=== PATIENT | female | born 1980 | race African-American/Black ===

== ENCOUNTER 2021-11-25 05:36 | Day surgery (SDC) | payer BC ==
[2021-11-23 18:01] VITALS: BMI 25.6
[2021-11-25] MEDS ORDERED: DEXAMETHASONE SOD PHOSPHATE 4 MG/1 ML VIAL ONE (09:32)
[2021-11-25] MEDS ORDERED: BUPIVACAINE HCL/PF 0.5% (5MG/ML) 10 ML VIAL ONE ×3 (09:32→10:33)
[2021-11-25] MEDS ORDERED: GENTAMICIN SO4 80 MG/2 ML VIAL ONE (09:32)
[2021-11-25] MEDS ORDERED: LIDOCAINE HCL 1%, 10 MG/ML (20ML VIAL) ONE ×2 (09:32→10:32)
[2021-11-25] MEDS ORDERED: LIDOCAINE HCL 1%, 10 MG/ML (20ML VIAL) NR ONE ×3 (09:47→10:42)
[2021-11-25] MEDS ORDERED: BUPIVACAINE HCL/PF 0.5% (5MG/ML) 10 ML VIAL IJ ONE ×2 (09:47→10:42)
[2021-11-25] MEDS ORDERED: GENTAMICIN SO4 80 MG/2 ML VIAL IVPB ONE ×2 (09:56)
[2021-11-25] MEDS ORDERED: DEXAMETHASONE SOD PHOSPHATE 4 MG/1 ML VIAL IVPUSH ONE (09:57)
[2021-11-25] MEDS ORDERED: PROPOFOL 20 ML ONE ×3 (10:29)
[2021-11-25] MEDS ORDERED: KETOROLAC TROMETHAMINE 30 MG/1 ML VIAL ONE (10:29)
[2021-11-25] MEDS ORDERED: MIDAZOLAM HCL 2 MG/2 ML SINGLE DOSE VIAL ONE (10:29)
[2021-11-25] MEDS ORDERED: ceFAZolin SODIUM 1 GM VIAL ONE (10:29)
[2021-11-25] MEDS ORDERED: ONDANSETRON 4 MG/2 ML VIAL ONE (10:29)
[2021-11-25 13:02] VITALS: BP 116/73; PULSE 80; TEMP 97.3
== END 2021-11-25 14:08 | disposition home or self-care (01) ==
LOC: JASU-SURG 05:36
PROVIDERS: ATTEND Podiatrist
PROC: 0SRQ0JZ Replacement of Left Toe Phalangeal Joint with Synthetic Substitute, Open Approach (ICD-10-PCS; principal; 2021-11-25 11:00)
DX: M20.42 Other hammer toe(s) (acquired), left foot (principal)
CPT/HCPCS: 73630-TC-LT; 81025; 88304-TC; 88311-TC